=== PATIENT | female | born 1960 ===

== ENCOUNTER 2018-06-30 12:36 | Day surgery (SDC) | payer MEDICAID ==
[2018-06-30] MEDS ORDERED: LIDOCAINE 2% MDV (20MG/ML) 20ML VIAL IV ONE (12:37)
[2018-06-30] MEDS ORDERED: PROPOFOL 10 MG/ML VIAL IV ONE (12:37)
--- NOTE | 2018-07-01 09:00 | Operative Note ---
DATE OF SURGERY: 06/30/2018 OPERATION: COLONOSCOPY to the cecum and terminal ileum with multiple biopsies. INDICATION: Prior history of colon disease, chronic diarrhea with up to 6 stools daily. HISTORY: The patient is a very pleasant 57-year-old female who is seen today for the first time by me for a colonoscopy. Her last examination was 2-[address] Buck. She has a 30-year history of Crohn disease and in the past had fistulas with abscess and seton placement. Her most recent colonoscopy, she claims, showed ileal disease only. She is now being treated with Azulfidine; however, in the past she took Remicade, which seemed to help with her fistulas. She tried Humira, which failed according to her. Surveillance colonoscopy is being performed at this time. She also had a history of colon polyps. ANESTHESIA: Intravenous sedation was administered by the department of anesthesiology and included propofol titrated to effect. PROCEDURE: Following informed consent from this alert individual including a discussion of the risks and benefits of the procedure and an opportunity for the patient to ask questions, the patient was in the left lateral decubitus position. A digital examination was performed. There was scarring noted at the anus. No palpable masses were noted. Following this, the Olympus [id number] video colonoscope was inserted into the rectum without resistance. The rectal mucosa had a normal appearance with perhaps some scar tissue noted. It also was noted in the sigmoid colon, but otherwise the mucosa was normal. The colonoscope was advanced up through the remainder of the bl to the level of the cecum. The remainder of the colon failed to demonstrate any inflammatory changes. The cecum was well defined by noting the appendiceal orifice and the ileocecal valve. Upon cannulating the ileocecal valve, there was some mild stenosis noted; however, the colonoscope could not be advanced through the opening. Distal to the stenotic area, however, was an ulceration noted most likely related to the Crohn disease. Biopsies from the ileum were obtained near the margin of the ulceration. From this point, the colonoscope was then withdrawn. Random biopsies were taken from a normal right and left colon upon withdrawal. Again, there was some scarring noted in the sigmoid colon and rectum. Retroflexion in the rectum failed to demonstrate any acute changes. The endoscope was straightened and removed. The patient tolerated the procedure well. The colon preparation was good. She was returned to the recovery area in stable condition. IMPRESSION: 1. Ileal ulcer as noted above seen through a mild stricture in the most terminal ileum. 2. Scarring noted in the sigmoid colon and rectum but an otherwise normal colonic mucosa throughout. Random biopsies taken from the right and left colon. 3. Anal scarring. RECOMMENDATIONS: I would recommend the patient have a CT enterography completed to evaluate the small bowel for additional changes. She will return to our office to discuss restarting a biologic. Followup will be with Jodie Morel as well. As always, thank you for allowing me to participate in the care of your patient. CC: CORRY Rae
== END 2018-06-30 14:20 | disposition home or self-care (01) ==
LOC: HOP 12:36
PROVIDERS: ATTEND Internal Medicine Gastroenterology
DX: K52.9 Noninfective gastroenteritis and colitis, unspecified (principal); Z87.19 Personal history of other diseases of the digestive system; Z86.010 Personal history of colon polyps; K50.90 Crohn's disease, unspecified, without complications; K63.3 Ulcer of intestine; L90.5 Scar conditions and fibrosis of skin; K21.9 Gastro-esophageal reflux disease without esophagitis